=== PATIENT | male | born 1985 | race Caucasian/White ===

== ENCOUNTER 2024-12-23 21:51 | Emergency (ER) | payer MEDICAID, SELFPAY ==
[2024-12-23 21:54] VITALS: BMI 25.8
--- NOTE | 2024-12-23 22:20 | EKG_ITS ---
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
[2024-12-23 22:31] VITALS: BP 116/87; PULSE 86; RESP 18; TEMP 37; O2SAT 97
--- NOTE | 2024-12-23 22:59 | XR_ITS ---
Examination: CT chest, without intravenous contrast. Sagittal and coronal 2-D reconstructions. Exam date and time: December 24, 2024, 0123 hrs. Indications: Patient fell 9 days ago with injury to the chest, severe left chest pain CTDI:vol (mGy) 9.41 DLP: (mGycm) 359 Technique: Multiple 3.0 mm axial sections of the chest to been obtained. Bone and lung density settings are obtained. Sagittal and coronal 2-D reconstructions have been obtained. Low dose protocols were performed. One or more of the following dose reduction techniques were used; automated exposure control, adjustment of the mA and/or KV according to patient size, use of iterative reconstruction technique. Findings: Thoracic aorta pulmonary arteries intact on this noncontrast study No pneumothorax pulmonary contusion or hemothorax Sternal segments thoracic vertebral bodies appear intact Clavicles appear intact Acute fractures left fourth fifth ribs with minimal offset No visualized liver or splenic lesion Contracted gallbladder No hydronephrosis Visualized abdominal aorta appears intact Impression: Acute fractures left fourth and fifth ribs. No pneumothorax pulmonary contusion or hemothorax
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
--- NOTE | 2024-12-24 02:44 | PRELIM_ITS ---
CT scan of the chest without intravenous contrast (axial sections with sagittal and coronal reformats) December 24, 2024 at 0123 hours Clinical History: Severe left chest pain after fall. Comparison: No prior study is available for comparison. Findings: The lungs are clear. There is no pneumothorax or pleural effusion. There is no pericardial effusion. No evidence of mediastinal hematoma on this noncontrast study. Acute mildly displaced fractures of the left anterior 4th and 5th ribs. The superficial soft tissues are unremarkable. Small hiatus hernia. Impression: Acute mildly displaced fractures of the left anterior 4th and 5th ribs. Small hiatus hernia. Report Electronically Signed By: Beni De Jesus 12/24/2024 2:43:24 AM [EST]
[2024-12-24] MEDS: AMOXICILLIN/POT CLAV 875 TABLET 1 TAB PO (03:06)
[2024-12-24] MEDS: HYDROcodone/APAP 5/325 TABLET 2 TAB PO (03:06)
[2024-12-24] MEDS: IBUPROFEN TAB 400 MG TABLET 800 MG PO (03:06)
== END 2024-12-24 03:15 | disposition home or self-care (01) ==
PROVIDERS: Emergency Provider Emergency Medicine
DX: S22.42XA Multiple fractures of ribs, left side, initial encounter for closed fracture (principal); K04.7 Periapical abscess without sinus; K02.9 Dental caries, unspecified; W18.30XA Fall on same level, unspecified, initial encounter
CPT/HCPCS: 71250; 93005; 99283; A9270

== ENCOUNTER 2025-03-23 06:32 | Emergency (ER) | payer SELFPAY ==
[2025-03-23 06:33] VITALS: BMI 28.7
[2025-03-23 06:41] VITALS: BP 152/94; PULSE 111; RESP 19; TEMP 37.2; O2SAT 99
--- NOTE | 2025-03-23 06:59 | PD.EDRME ---
Rapid Medical Screening Exam RME Arrival date/time: 03/23/25 06:32 This is a 39-year-old male that comes into the emergency room with swelling to the lower lip. Patient states has been going on for the past 3 days. Patient comes into the emergency room with a dog. Patient reports that he had a ingrown hair around his lip and he was trying to remove it. Patient states that since then his lower lip started to swell. Patient states has been going on for 3 days. Patient reports that he was trying to pop it himself and was not successful. As I was trying to assess patient he demanded to have his lip numbed before it was assessed. I explained to him that I need to see how bad this swelling is. Patient yelling in room demanding to be numbed before having abscess assessed. Explained to patient that we need to assess lip first before numbing or doing any treatment to the lip. I even offered to give patient pain medications and antibiotics first and to have patient come back to the emergency room in a few days and see if abscess is still there and l/D it at that time and patient demanded for it to be injected with lidocaine. I called to come see patient and he took over care patient care. Chief Complaint: Skin/Abscess/Foreign Body Time Seen by Provider: 03/23/25 06:42 Vital signs: Vital Signs Temperature 98.9 F 03/23/25 06:41 Pulse Rate 111 H 03/23/25 06:41 Respiratory Rate 19 03/23/25 06:41 Blood Pressure 152/94 H 03/23/25 06:41 Pulse Oximetry (%) 99 03/23/25 06:41 Oxygen Delivery Method Room Air 03/23/25 06:41 Vital signs reviewed by provider: Yes RME Narrative: I was asked by the PA to see the patient as he was having a lot of complaints and did not want the options provided to him to manage this cellulitis versus abscess He was refusing to be touched and examined I asked the patient to allow us to examine him properly I offered him to do Emla cream first before we examine him and he agreed After applying Emla cream I examined his lip and he does have indurated area of the lower lip on the right side But there was no fluctuation to indicate abscess To make sure there is no abscess I infiltrated the maximum area of tenderness and swelling in that part of the lip with lidocaine 0.5 mL And I introduced a needle through that area into the area of induration however there was no pus coming out of that area I explained to the patient that this is most likely a cellulitis is containing only blood now and it will not form an abscess unless it was kept for another 2 days however with antibiotics it might not even developed an abscess and resolve on its with antibiotic alone So I offered him to have an antibiotic here with Augmentin doxycycline and prescription for 10 days I also asked him to come back in 2 days to make sure that there is no formation of an abscess that needs to be drained Very unlikely that the left foot forming abscess however will check him in 2 days to make sure there is no abscess formation Final assessment Right side lower lip cellulitis and blister No evidence of abscess yet Plan Augmentin and doxycycline for 10 days Follow-up in 2 days Patient was discharged good condition Exam: lower lip swelling, awake alert Clinical Impression: Lower lip cellulitis
[2025-03-23] MEDS: LIDOCAINE/PRILOCAINE CR 5GM 5 GM TUBE TOP (07:29)
[2025-03-23] MEDS: LIDOCAINE INJ PF 1% 5 ML VIAL INFL (08:23)
[2025-03-23] MEDS: AMOXICILLIN/POT CLAV 875 TABLET 1 TAB PO (08:46)
[2025-03-23] MEDS: DOXYCYCLINE 100 MG TABLET PO (08:46)
== END 2025-03-23 08:51 | disposition home or self-care (01) ==
PROVIDERS: Emergency Provider Emergency Medicine
DX: K13.0 Diseases of lips (principal)
CPT/HCPCS: 99281; J3490; A9270